=== PATIENT | female | born 1955 | race Caucasian/White ===

== ENCOUNTER 2016-11-15 08:34 | Emergency (ER) | payer OTHER ==
[2016-11-15 09:02] VITALS: PULSE 85; RESP 18; TEMP 98; O2SAT 97
--- NOTE | 2016-11-15 09:09 | EDPHY ---
H & P Time Seen by Provider: 11/15/16 08:38 HPI/ROS: CHIEF COMPLAINT: Sore throat, swollen tonsils, red eyes HISTORY OF PRESENT ILLNESS: 61-year-old female reports with a day history of a sore throat, some facial congestion, and cough who developed bilateral red, swollen, itchy eyes today. Patient has had no fever. No chest pain or shortness of breath. Has not taken any bhln-vgn-sddrdee medications for the symptoms other than some ibuprofen. No headache. No neck pain. No sputum production. No visual complaints. No vomiting or diarrhea. No urinary complaints. No lightheadedness. REVIEW OF SYSTEMS: Aside from elements discussed in the HPI, a comprehensive 10-point review of systems was reviewed and is negative. PAST MEDICAL HISTORY: Hypertension. SOCIAL HISTORY: Nonsmoker. VITAL SIGNS: see nurse's notes. GENERAL: Well-developed, well-nourished, in no acute distress. HEENT: Atraumatic Eyes: Bilateral conjunctival injection with discharge present. Pupils are equal round reactive to light. Extraocular movements are intact. Very mild upper eyelid swelling. No sinus tenderness to percussion. Ears: TM clear bilaterally. Nose: No discharge. Mouth: moist mucous membranes. Pharynx: Slight erythema, no exudates. No tonsillar enlargement. Uvula is midline. NECK: Supple, no adenopathy, no meningismus, no tenderness. Negative Kernig's and Brudzinski's. LUNGS: Clear to auscultation bilaterally, no wheezes, rhonchi or rales. CARDIAC: Regular rate and rhythm, no rubs, murmurs or gallops. ABDOMEN: Soft, nontender, bowel sounds normal. BACK: No CVA tenderness. EXTREMITIES: Normal, no edema, FROM. NEURO: Alert and oriented, grossly nonfocal. SKIN: Warm and dry, no rash. PSYCHIATRIC: Normal mentation, no agitation. Smoking Status: Never smoked Constitutional: Initial Vital Signs Temperature (C) 36.6 C 11/15/16 09:00 Heart Rate 85 11/15/16 09:00 Respiratory Rate 18 11/15/16 09:00 Blood Pressure 144/83 H 11/15/16 09:00 O2 Sat (%) 97 11/15/16 09:00 O2 Delivery Mode Room Air Allergies/Adverse Reactions: Penicillins Allergy (Verified 07/21/13 13:49) tramadol Allergy (Verified 06/07/14 16:48) Home Medications: Medication Instructions Recorded HCTZ (RX) 06/07/14 Ofloxacin 0.3% [Ocuflox 0.3%] 2 drops EACHEYE QID #7 opht.btl 06/07/14 Ofloxacin 0.3% [Ocuflox 0.3%] 1 - 2 drops OP QID #1 opht.btl 11/15/16 Medical Decision Making ED Course/Re-evaluation: Patient is allergic to penicillins. She was given a prescription for ofloxacin eyedrops to use for her conjunctivitis. We discussed treatment for her upper respiratory infection symptoms and cough, however, I do not believe that the patient needs antibiotics at this time. She will follow up with her primary care physician if she is not improving. Differential Diagnosis: Differential diagnosis of the patient's symptom complex was considered including but not limited to viral upper respiratory infection, sinusitis, bacterial sinusitis, viral pharyngitis, strep pharyngitis, bronchitis, bronchospasm, conjunctivitis, periorbital cellulitis, and influenza. Departure - Departure Disposition: Home, Routine, Self-Care Clinical Impression: Acute conjunctivitis of both eyes Qualifiers: Acute conjunctivitis type: unspecified Qualified Code(s): H10.33 - Unspecified acute conjunctivitis, bilateral Upper respiratory infection Qualifiers: URI type: unspecified viral URI Qualified Code(s): J06.9 - Acute upper respiratory infection, unspecified Condition: Good Instructions: Upper Respiratory Infection (ED), Conjunctivitis (ED) Additional Instructions: For your nasal congestion and ear pressure, I recommend an [id number] decongestant. Please use 1 that is safe for patient to have high blood pressure. I also recommend Flonase nasal spray. For your sore throat, use Tylenol or ibuprofen. Throat lozenges, throat sprays, or salt water gargles may also be helpful. Please use the antibiotic eyedrops as directed. Return to the emergency department or seek care urgently if you're symptoms are worsening despite the above treatment, if you develop shortness of breath, worsening cough, worsening sputum production, if you're unable to drink fluids secondary to throat pain or other issues, if you developed, vomiting, diarrhea, or other concerns. Referrals: Olga Norris MD [Primary Care Provider] - As per Instructions Prescriptions: Ofloxacin 0.3% [Ocuflox 0.3%] 1 - 2 drops OP QID #1 opht.btl
[2016-11-15 09:17] VITALS: BP 134/85
== END 2016-11-15 09:14 | disposition home or self-care (01) ==
LOC: CED 08:34
DX: J06.9 Acute upper respiratory infection, unspecified (principal); H10.33 Unspecified acute conjunctivitis, bilateral; I10 Essential (primary) hypertension

== ENCOUNTER → 2017-01-12 | Outpatient (CLI) | payer OTHER | LOC: BRMIMAGING 13:19 | PROVIDERS: ATTEND Family Medicine | DX: Z12.31 Encounter for screening mammogram for malignant neoplasm of breast (principal) | CPT/HCPCS: G0202 ==

== ENCOUNTER → 2017-01-28 | Outpatient (CLI) | payer OTHER | LOC: BRMIMAGING 08:41 | PROVIDERS: ATTEND Family Medicine | DX: R92.8 Other abnormal and inconclusive findings on diagnostic imaging of breast (principal) | CPT/HCPCS: G0206 ==

== ENCOUNTER → 2018-01-15 | Outpatient (CLI) | payer OTHER | LOC: BRMIMAGING 10:44 | PROVIDERS: ATTEND Family Medicine | DX: Z12.31 Encounter for screening mammogram for malignant neoplasm of breast (principal) ==

== ENCOUNTER → 2018-03-25 | Outpatient (CLI) | payer OTHER | LOC: BRMIMAGING 13:47 | PROVIDERS: ATTEND Family Medicine | DX: Z13.820 Encounter for screening for osteoporosis (principal); M85.89 Other specified disorders of bone density and structure, multiple sites ==